=== PATIENT | male | born 1960 | race Caucasian/White ===

== ENCOUNTER 2022-03-09 13:01 | Outpatient (CLI) | payer MEDICAID, SELFPAY ==
[2022-03-09 10:10] LABS: Chloride* 105 mmol/L (96-114); Potassium* 4.8 mmol/L (3.6-5.1); Sodium* 141 mmol/L (135-149)
[2022-03-09 10:13] LABS: Blood Urea Nitrogen* 19 mg/dL (7-30); Carbon Dioxide* 25 mmol/L (20-32); Estimated Glomerular Filt Rate 85 ml/min; Glucose* 129 mg/dL (60-115)
[2022-03-09 10:14] LABS: Calcium* 9.7 mg/dL (8.4-10.6)
== END 2022-03-09 13:02 | disposition home or self-care (01) ==
PROVIDERS: PCP Family Medicine; Visit Provider Family Medicine
DX: E11.9 Type 2 diabetes mellitus without complications (principal); I10 Essential (primary) hypertension; F41.9 Anxiety disorder, unspecified; M10.9 Gout, unspecified
CPT/HCPCS: 80048

== ENCOUNTER 2022-09-27 08:35 | Outpatient (CLI) | payer MEDICAID, SELFPAY | END 2022-09-27 08:36 | disposition home or self-care (01) | LOC: NFLDREF 09-30 09:58 | PROVIDERS: PCP Family Medicine; Referring Provider Family Medicine; Visit Provider Family Medicine | DX: I10 Essential (primary) hypertension (principal); E11.9 Type 2 diabetes mellitus without complications; Z12.5 Encounter for screening for malignant neoplasm of prostate | CPT/HCPCS: 80053; 80061; 82043; 82570; 84153 ==

== ENCOUNTER 2023-03-10 13:54 | Outpatient (CLI) | payer MEDICAID, SELFPAY ==
[2023-03-10 14:51] VITALS: BP 134/84; PULSE 96; RESP 16
--- NOTE | 2023-03-10 15:23 | P.STN_ITS ---
Stress Test Note Date Date of test: 03/10/23 Providers Primary care provider: Prasanna Chi Stress test physician: Brandin Castañeda Stress Test Note Stress test ordered: Stress Echo Indication for test: Shortness of breath Results discussion: Patient is a very nice British-speaking gentleman with the help of an foreign language interpreter presents here for the above test indication was shortness of breath. After discussion the risks benefits side effects he would like to proceed pretest EKG shows normal sinus rhythm, no acute ST wave changes are noted, rhythm is sinus, with a ventricular rate of 88, blood pressure 138 on 72. Standard Trell protocol is used for a total time course a 5 minutes 7 seconds, achieved a metabolic equivalent of 7 Mets, with a maximum heart rate of 159 which is 119% of the maximum, this test he had cole shortness of breath, and some fatigue, test is terminated because of this. Review of the EKG tracing shows the positive EKG evidence of the ischemia with ST wave depression notable inferior laterally, of 2-3 mm. Recovered normally in the recovery. Impression: Positive electrographic portion of stress echo, inferior lateral changes suggestive of ischemia. Follow up suggested: I did speak to Dr. Chi's nurse, she will give him a message , he will be scheduled for follow-up, and also the follow-up with cardiology. Given a prescription for nitroglycerin explained had use this, he will stay on his aspirin, he will report to the emergency room if he has ongoing chest pain shortness of breath or other symptoms. Cardiology will review the echo, the preliminary read by the tech was it was positive. The left this testing facility back to baseline, with no complaints.
== END 2023-03-10 14:55 | disposition home or self-care (01) ==
LOC: STRESS 13:55
PROVIDERS: PCP Family Medicine; Visit Provider Family Medicine
DX: R06.09 Other forms of dyspnea (principal); I10 Essential (primary) hypertension; E11.9 Type 2 diabetes mellitus without complications
CPT/HCPCS: 93016; 93325; 93351; T1013

== ENCOUNTER 2023-04-27 08:24 | Outpatient (CLI) | payer OTHER, SELFPAY | END 2023-04-27 08:25 | disposition home or self-care (01) | PROVIDERS: PCP Family Medicine; Visit Provider Family Medicine | DX: Z01.818 Encounter for other preprocedural examination (principal) | CPT/HCPCS: 80053 ==

== ENCOUNTER 2024-03-14 07:26 | Outpatient (CLI) | payer MEDICARE, MEDICAID, SELFPAY ==
--- OUTSIDE RECORDS SUMMARY | 2024-03-14 14:51 | XMS_ITS | Clinical Summary ---
Author Organization [facility] Address [place], [place] [address] Care Team Providers Care Operater Name Role Phone Prasanna Chi MD Primary Care Provider [phone] Allergies Active Allergy Reactions Criticality Noted Date Comments Penicillins Itching,Syncope 04/06/2012 Pork/Porcine Containing Products Rash Medications Medication Sig Dispensed Refills Start Date End Date Status aspirin 81 mg tablet Take 1 tablet by mouth once daily with a meal. 0 04/06/2012 Active metFORMIN (GLUCOPHAGE) 1,000 mg tablet Take 1 Tablet (1,000 mg) by mouth two times daily with meals. 03/17/2023 Active losartan (COZAAR) 50 mg tablet Take 50 mg by mouth once daily. 03/08/2023 Active escitalopram oxalate (LEXAPRO) 10 mg tablet Take 10 mg by mouth once daily. 03/08/2023 Active nitroglycerin (NITROSTAT) 0.[address] 0.4 mg under the tongue every 5 minutes if needed. 03/10/2023 Active insulin glargine, U-100, (Lantus U-100 Insulin) 100 unit/mL injection Inject 10 units subcutaneous before bedtime. Active atorvastatin (LIPITOR) 40 mg tabletIndications:C oronary artery disease, unspecified vessel or lesion type, unspecified whether angina present, unspecified whether [place] or transplanted heart Take 1 Tablet (40 mg) by mouth at bedtime. 90 Tablet 3 05/02/2023 Active Active Problems Problem Noted Date Diagnosed Date Back pain 04/06/2012 Hydroureter on right 04/06/2012 HTN (hypertension) 04/06/2012 Neck pain 04/06/2012 DIABETES 09/17/2002 Immunizations Name Administration Dates Next Due Influenza, IIV3 (Age >=3 years) 04/06/2012 Social History Tobacco Use Types Packs/Day Years Used Date Smoking Tobacco: Former Smokeless Tobacco: Never Tobacco Cessation:Counseling Given: No Alcohol Use Standard Drinks/Week Comments No 0 (1 standard drink = 0.6 oz pur e alcohol) Social Connections Answer Date Recorded Frequency of Communication with Friends and Fami ly Not on file 03/17/2023 Sex and Gender Information Value Date Recorded Sex Assigned at Not on file Gender Identity Not on file Sexual Orientation Not on file Obstetrics History Last Filed Vital Signs Vital Sign Reading Time Taken Comments Blood Pressure 124/76 05/02/2023 4:45 PM CDT Pulse 70 05/02/2023 4:45 PM CDT Temperature 36.4 ??C (97.5 ??F) 05/02/2023 1:30 PM CD T Respiratory Rate 18 05/02/2023 4:45 PM CDT Oxygen Saturation 100% 05/02/2023 4:45 PM CDT Inhaled Oxygen Concentration - - Weight 80.7 kg (178 lb) 05/02/2023 10:00 AM CDT Height 177.8 cm (5' 10) 05/02/2023 10:00 AM CDT Body Mass Index 25.54 05/02/2023 10:00 AM CDT Plan of Treatment Health Maintenance Due Date Last Done Comments Pneumococcal series for age 65+ (1 of 2 - PCV) 1964 Tdap 1969 Depression screening for age 12+ 1970 HIV for age 15-65 1973 Hepatitis C screening for ag e 18-79 1976 Tetanus booster 1978 Colonoscopy through age 75 2003 Zoster (shingles) series for age 50+ (1 of 2) 2008 AAA screening age 65-74 2023 COVID-19 vaccine series (2022- season) 2023 03/30/2022, 07/21/2021, 11/08/2020, Additional history exists Influenza for age 65+ 2024 04/06/2012 BMI (ht and wt on same day) for age 18+ 04/20/2024 04/20/2023, 03/17/2023 Lipids for age 45-75 05/02/2028 05/02/2023, 04/06/20 12 Procedures Procedure Name Priority Date/Time Associated Diagnosis Comments LIPID PANEL PIPPA 05/02/2023 8:55 AM CDT from Last 3 Months or Most Recently Relevant to Health Maintenance Results * (ABNORMAL) LIPID PANEL (05/02/2023 8:55 AM CDT) CHOLESTEROL,TOTAL 123 100 - 199 mg/dL 05/02/2023 1:52 PM CDT [facility] Comment: Cholesterol, Total Reference Ranges Desirable <200 mg/dL Borderline 200-239 mg/dL High >=240 mg/dL TRIGLYCERIDES 92 <150 mg/dL 05/02/2023 1:52 PM CDT [facility] HDL CHOLESTEROL 39(L) >40 mg/dL 1:52 PM CDT [facility] NON-HDL CHOLESTEROL 84 <145 mg/dl 05/02/2023 1:52 PM CDT [facility] CHOL/HDL RATIO 3.15 <4.50 05/02/2023 1:52 PM CDT [facility] LDL CHOLESTEROL 66 <=130 mg/dL 05/02/2023 1:52 PM CDT [facility] VLDL CHOLESTEROL 18 <=30 mg/dL 05/02/2023 1:52 PM CDT [facility] PROVIDER ORDERED STATUS RANDOM 05/02/2023 1:52 PM CDT [facility] Blood BLOOD SPECIMEN / Unknown Non-Lab Venipuncture / Unknown 05/02/2023 8:55 AM CDT 05/02/2023 9:02 AM CDT Pat Dodd NP [facility] [address] [place] [address], [place] from Last 3 Months or Most Recently Relevant to Health Maintenance Advance Directives * Full Code (Latest Code Status on File) Date Activated Date Inactivated Comments 05/02/2023 1:24 PM 05/02/2023 7:05 PM Question Answer Comments Code Status Discussion: Reviewed Preferences Care Teams Operater Relationship Specialty Start Date End Date Prasanna Chi MD [address] [place] [address] PCP - General Family Practice 04/21/23
== END 2024-03-14 07:27 | disposition home or self-care (01) ==
LOC: NFLDREF 14:49
PROVIDERS: PCP Family Medicine; Referring Provider Family Medicine; Visit Provider Family Medicine
DX: E11.9 Type 2 diabetes mellitus without complications (principal); I10 Essential (primary) hypertension; I25.10 Atherosclerotic heart disease of native coronary artery without angina pectoris; B35.3 Tinea pedis; N13.30 Unspecified hydronephrosis; M10.9 Gout, unspecified
CPT/HCPCS: 80053; 80061; 82043; 82570

== ENCOUNTER 2024-04-18 19:57 | Emergency (ER) | payer MEDICARE, MEDICAID, SELFPAY ==
[2024-04-18 20:10] VITALS: BP 173/79; PULSE 86; RESP 18; TEMP 37.3; O2SAT 97; BMI 27.4
--- NOTE | 2024-04-18 20:53 | ED_ITS ---
HPI - General Adult General Date Seen: 04/18/24 Chief complaint: Dental/Oral/Mouth Injury/Pain Stated complaint: tooth pain Time Seen by Provider: 04/18/24 20:49 History of Present Illness HPI narrative: This is a pleasant 64-year-old gentleman with a past medical history including coronary artery disease, hypertension, type 2 diabetes (on insulin, metformin), anxiety, gout presenting to the ER for dental pain and tooth pain. He has been having pain in his mandibular incisor. He saw his dentist today and was put on ibuprofen. Ibuprofen is not helping his pain. He also notes that he has developed swelling on the right side of his lip and chin about 3 days ago. He has not had any fevers or chills. No swelling under his mandible. No trouble chewing. No trouble swallowing. Voice is normal. He went to his dentist today. He was put on ibuprofen (610 mg tablets) and apparently is going to follow-up in 10 days. He was not given any stronger pain medicines or any antibiotics. He has a history of diabetes. Sugar has been well controlled lately, around 130. No fever. Patient speaks primarily [place]. His is somewhat bilingual and he has his children with him who interpret. 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 Related Data Home Medications ?Medication ?Instructions ?Recorded ?Confirmed aspirin 81 mg tablet,delayed 81 mg PO QDAY 03/09/22 03/14/24 release Previous Rx's ?Medication ?Instructions ?Recorded blood pressure monitor #1 ea 10/25/22 escitalopram oxalate 10 mg tablet 10 mg PO QDAY #90 tabs 03/08/23 clotrimazole 1 % topical cream 1 applic topical BID #30 grams 12/06/23 (Antifungal (clotrimazole)) Diabetic Test Strips #100 ea 03/14/24 fluconazole 150 mg tablet 150 mg PO QWEEK #4 tabs 03/14/24 insulin glargine 100 unit/mL (3 10 unit (0.1 mL) subcut .Bedtime 03/14/24 mL) subcutaneous pen #15 mL lancets #100 ea 03/14/24 losartan 25 mg tablet 25 mg PO QDAY #90 tabs 03/14/24 metformin 1,000 mg tablet 1,000 mg PO BID #180 tabs 03/14/24 nitroglycerin 0.4 mg sublingual 0.4 mg sublingual Q5M PRN chest 03/14/24 tablet pain #25 tabs pen needle, diabetic 32 gauge x #100 ea 03/14/24 (BD Veronica 2nd Gen Pen Needle) atorvastatin 40 mg tablet 40 mg PO QHS #90 tabs 03/15/24 clindamycin HCl 300 mg capsule 300 mg PO TID #30 caps 04/18/24 Allergies Allergy/AdvReac Type Severity Reaction Status Date / Time Penicillin v Allergy Mild Dizziness Uncoded 03/14/24 07:31 PORK/PORCINE CONTAINING Allergy Mild itching Uncoded 03/14/24 07:31 PRODUCTS PFSH PFSH Social History (Updated 03/14/24 @ 09:01 by Kecia Lu~[facility]) Narrative: SOCIAL HISTORY: . Four children. 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 Family doing well. He is not sexually active. He walks for exercise 3-5 times per week. Not much walking over the cold winter however. HABITS: No tobacco alcohol or recreational drug use. FAMILY HISTORY: Mother had breast cancer but is doing well currently. No other significant illnesses in family. What is your current living situation?: I presently have a place to live Problems where you live: mold and water leaks In the past 12 months, utilities in danger of being shut off: no In past 12 months, lack of transportation kept you from medical appts, meetings, work, or getting things needed for daily living: no In the past 12 mos, have been you worried that your food would run out before you had money to buy more?: never true In the past 12 mos, the food you bought just didn't last and you didn't have money to buy more?: never true Smoking Status: Never smoker Second hand tobacco smoke exposure: No How often do you have a drink containing alcohol: never AUDIT-C Alcohol total score: 0 Non-prescribed substance use: denies use How often does anyone, including family, friends and others, physically hurt you : fairly often How often does anyone, including family, friends and others, insult or talk down to you: never How often does anyone, including family, friends and others, threaten you with harm: never How often does anyone, including family, friends and others, scream or curse at you: never Little interest or pleasure in doing things: not at all Feeling down, depressed, or hopeless: not at all Exam Narrative: Exam Narrative: Constitutional: Appears well-developed and well-nourished. Alert. Conversant using his family to interpret. Non toxic. He is holding the right side of his jaw because of pain. HENT: Head: Atraumatic. Nose: Nose normal. Mouth/Throat: Oral mucosa is clear and moist. no trismus. Pharynx normal. Tonsils symmetric. No tonsillar enlargement, erythema, or exudate. No submand ibular swelling. No trismus. He does have a little bit of swelling of the right mandibular gums adjacent to the right canine and a little bit of swelling of the right lower lip. Careful palpation of the gums and lips did not reveal any focal firmness or fluctuance or abscess. No submandibular fullness or swelling. Normal mouth opening. Tongue protrudes normally. No trismus. Airway widely patent. Eyes: Conjunctivae normal. EOM normal. Pupils equal, round, and reactive to light. No scleral icterus. Neck: Normal range of motion. Neck supple. No tracheal deviation present. No cervical lymphadenopathy Cardiovascular: Normal rate, regular rhythm. No gallop. No friction rub. No murmur heard. Pulmonary/Chest: Effort normal. No stridor. No respiratory distress. No wheezes. No rales. No rhonchi Musculoskeletal: RUE: Normal range of motion. No tenderness. No deformity LUE: Normal range of motion. No tenderness. No deformity RLE: Normal range of motion. No edema. No tenderness. No deformity LLE: Normal range of motion. No edema. No tenderness. No deformity Neurological: Alert and oriented to person, place, and time. Normal strength. CN II-VII intact. No sensory deficit. GCS eye subscore is 4. GCS verbal subscore is 5. GCS motor subscore is 6. Normal coordination Skin: Skin is warm and dry. No rash noted. No pallor. Normal capillary refill. Psychiatric: Normal mood. Normal affect. Const: Vital Signs, click to edit/add: Vital Signs - 24 hr 04/18/24 20:10 04/18/24 21:25 04/18/24 21:29 Temperature 99.2 F 99.2 F 99.2 F Pulse Rate [Right Pulse Oximeter] 86 80 Respiratory Rate 18 18 Blood Pressure [Ri ght Upper Arm] 173/79 H 162/78 H Pulse Oximetry 97 97 Oxygen Delivery Me thod Room Air Room Air 04/18/24 21:31 Temperature 99.2 F Pulse Rate [Right Pulse Oximeter] 80 Respiratory Rate 18 Blood Pressure [Ri ght Upper Arm] 162/78 H Pulse Oximetry Oxygen Delivery Me thod Course Vital Signs Vital signs: Initial Vital Signs Temperature 99.2 F 04/18/24 20:10 Temperature Source Temporal Artery Scan 04/18/24 20:10 Pulse Rate 86 04/18/24 20:10 Pulse Rhythm Regular 04/18/24 20:10 Respiratory Rate 18 04/18/24 20:10 Blood Pressure 173/79 H 04/18/24 20:10 Blood Pressure Mean 110 H 04/18/24 20:10 Blood Pressure Position Sitting 04/18/24 20:10 Pulse Oximetry 97 04/18/24 20:10 Oxygen Delivery Method Room Air 04/18/24 20:10 Vital Signs Temperature 99.2 F 04/18/24 20:10 Pulse Rate 86 04/18/24 20:10 Respiratory Rate 18 04/18/24 20:10 Blood Pressure 173/79 H 04/18/24 20:10 Pulse Oximetry 97 04/18/24 20:10 Oxygen Delivery Method Room Air 04/18/24 20:10 Temperature 99.2 F 04/18/24 21:31 Pulse Rate 80 04/18/24 21:31 Respiratory Rate 18 04/18/24 21:31 Blood Pressure 162/78 H 04/18/24 21:31 Pulse Oximetry 97 04/18/24 21:29 Oxygen Delivery Method Room Air 04/18/24 21:29 Medications Administered Medications: Discontinued Medications Generic Name Dose Route Start Last Admin Trade Name Freq PRN Reason Stop Dose Admin Hydrocodone Bitart/Acetaminophen 1 tab 04/18/24 21:18 04/18/24 21:25 Hydrocodone-Acetamin 5-325 Mg 1 Tab PO 04/18/24 21:19 1 tab ONCE ONE Administration Clindamycin HCl 300 mg 04/18/24 21:12 04/18/24 21:25 Clindamycin 150 Mg Capsule PO 04/18/24 21:13 300 mg ONCE ONE Administration Medical Decision Making [facility] Narrative Medical decision making narrative: This patient presents with a tooth ache stemming from his right mandibular canine tooth. Pain has been there for about 10 days but has gotten worse and is not associated with swelling of the right gums and right lower lip for about 3 days.. The differential diagnosis includes: cracked tooth syndrome, pulpitis, sub-apical abscess, amongst others. Although he has some swelling of the gums and lip which I think probably do represent an evolving infection and possibly a cellulitis, There is no abscess detected around the tooth amenable to incision and drainage. There is no evidence of buccinator space infections, no significant facial swelling, or Eren's angina. There are no posterior pharyngeal space infections detected. He is already on NSAIDs. He will continue that. Will add prescriptions for [place]. Opiate precautions. Also will start him on antibiotics. He is allergic to penicillin so put him on clindamycin. Follow up with a dentist/cop breaker in the coming days is indicated for further work up and treatment. Instructions for return to the ER were reviewed with the patient. First dose of clindamycin given by mouth here in the ER. Single [place] tablet given by mouth here in the ER. Instymeds prescriptions for [place] provided. Clindamycin is not available in [facility]. Prescription for clindamycin E prescribed to [facility] patient's chosen pharmacy. Discharge Plan Discharge Clinical Impression: Dental infection Patient Disposition: Home, Self-Care Condition: Stable Instructions: Dental Abscess (ED), Toothache (ED) Additional Instructions: As we discussed, use caution with prescription pain killers because they cause dizziness, drowsiness and you should not drive while taking them. Monitor your swelling carefully. If you have worsening swelling of your gums, lips, or cheek, or if you develop fever or get worse, you should come back to the ER. Please recheck with your dentist within the next 1-2 days. Prescriptions: New clindamycin HCl 300 mg capsule 300 mg PO TID Qty: 30 0RF No Action escitalopram oxalate 10 mg tablet 10 mg PO QDAY Qty: 90 3RF insulin glargine 100 unit/mL (3 mL) insulin pen 10 unit subcut .Bedtime Qty: 15 12RF losartan 25 mg tablet 25 mg PO QDAY Qty: 90 3RF (DME) pen needle, diabetic [BD Veronica 2nd Gen Pen Needle] 32 gauge x 5/32 needle See Rx Instructions .Route Qty: 100 3RF Rx Instructions: As directed, testing once per day metformin 1,000 mg tablet 1,000 mg PO BID Qty: 180 3RF (DME) lancets Misc See Rx Instructions .Route Qty: 100 3RF Rx Instructions: As directed nitroglycerin 0.4 mg tablet, sublingual 0.4 mg sublingual Q5M PRN (Reason: chest pain) Qty: 25 0RF (DME) Diabetic Test Strips Misc See Rx Instructions .Route Qty: 100 3RF Rx Instructions: As directed fluconazole 150 mg tablet 150 mg PO QWEEK Qty: 4 0RF Rx Instructions: may repeat second dose 72 hrs after first dose if symptoms persist atorvastatin 40 mg tablet 40 mg PO QHS Qty: 90 3RF aspirin 81 mg tablet,delayed release (DR/EC) 81 mg PO QDAY (DME) blood pressure monitor Kit See Rx Instructions .Route Qty: 1 0RF Rx Instructions: As directed clotrimazole [Antifungal (clotrimazole)] 1 % cream 1 applic topical BID Qty: 30 5RF Follow Up/Referrals: Prasanna Chi MD [Primary Care Provider] - Stand Alone Forms: [employer] Info Instructions
--- OUTSIDE RECORDS SUMMARY | 2024-04-18 21:19 | XMS_ITS | Clinical Summary ---
Author Organization [facility] Address [place], [place] [address] Care Team Providers Care Tool And Die Designer Name Role Phone Prasanna Chi MD Primary Care Provider [phone] Allergies Active Allergy Reactions Criticality Noted Date [...] type, unspecified whether angina present, unspecified whether [place] or transplanted heart Take 1 Tablet (40 [...] 1969 Depression screening for age 12+ 1970 Hepatitis C screening for ag e 18-79 1976 Tetanus booster 1978 Colonoscopy through age 75 2003 Zoster (shingles) series for age 50+ (1 of 2) 2008 AAA screening age 65-74 2023 COVID-19 vaccine series ( season) 2024 03/30/2022, 07/21/2021, 11/08/2020, Additional history exists Influenza [...] - 199 mg/dL 05/02/2023 1:52 PM CDT [facility] Comment: Cholesterol, Total Reference Ranges Desirable <200 mg/dL Borderline 200-239 mg/dL High >=240 mg/dL TRIGLYCERIDES 92 <150 mg/dL 05/02/2023 1:52 PM CDT [facility] HDL CHOLESTEROL 39(L) >40 mg/dL 1:52 PM CDT [facility] NON-HDL CHOLESTEROL 84 <145 mg/dl 05/02/2023 1:52 PM CDT [facility] CHOL/HDL RATIO 3.15 <4.50 05/02/2023 1:52 PM CDT [facility] LDL CHOLESTEROL 66 <=130 mg/dL 05/02/2023 1:52 PM CDT [facility] VLDL CHOLESTEROL 18 <=30 mg/dL 05/02/2023 1:52 PM CDT [facility] PROVIDER ORDERED STATUS RANDOM 05/02/2023 1:52 PM CDT [facility] Blood BLOOD SPECIMEN / Unknown Non-Lab Venipuncture / Unknown 05/02/2023 8:55 AM CDT 05/02/2023 9:02 AM CDT Pat Dodd NP [facility] [address] [place] [address], from Last 3 Months or Most Recently Relevant to Health Maintenance Advance Directives * Full Code (Latest Code Status on File) Date Activated Date Inactivated Comments 05/02/2023 1:24 PM 05/02/2023 7:05 PM Question Answer Comments Code Status Discussion: Reviewed Preferences Care Teams Tool And Die Designer Relationship Specialty Start Date End Date Prasanna Chi MD [address] [place] [address] PCP - General Family Practice 04/21/23
[2024-04-18 21:25] VITALS: TEMP 37.3
[2024-04-18] MEDS: HYDROCODONE-ACETAMIN 5-325 MG 1 TAB PO (21:25)
[2024-04-18] MEDS: CLINDAMYCIN 150 MG CAPSULE 300 MG PO (21:25)
[2024-04-18 21:29] VITALS: BP 162/78; PULSE 80; RESP 18; TEMP 37.3; O2SAT 97
[2024-04-18 21:31] VITALS: BP 162/78; PULSE 80; RESP 18; TEMP 37.3
== END 2024-04-18 21:32 | disposition home or self-care (01) ==
LOC: ED 21:18
PROVIDERS: Emergency Provider Emergency Medicine; PCP Family Medicine
DX: R68.84 Jaw pain (principal)
CPT/HCPCS: 99282; 99283; A9270

== ENCOUNTER 2025-03-08 08:10 | Outpatient (CLI) | payer MEDICARE, MEDICAID, SELFPAY | END 2025-03-08 08:11 | disposition home or self-care (01) | LOC: NFLDREF 03-12 17:41 | PROVIDERS: PCP Family Medicine; Referring Provider Family Medicine; Visit Provider Family Medicine | DX: E11.65 Type 2 diabetes mellitus with hyperglycemia (principal) | CPT/HCPCS: 80053; 80061; 82043; 82570 ==

== ENCOUNTER 2025-07-11 08:59 | Outpatient (CLI) | payer MEDICARE, SELFPAY | END 2025-07-11 09:00 | disposition home or self-care (01) | LOC: NFLDREF 07-15 13:59 | PROVIDERS: PCP Family Medicine; Referring Provider Family Medicine; Visit Provider Family Medicine | DX: I10 Essential (primary) hypertension (principal) | CPT/HCPCS: 80048 ==